=== PATIENT | male | born 1990 | race African-American/Black ===

== ENCOUNTER 2020-09-15 07:56 | Emergency (ER) | payer OTHER ==
[2020-09-15] MEDS ORDERED: CEPHALEXIN500 M1 PO (08:59)
== END 2020-09-15 09:10 | disposition home or self-care (01) ==
LOC: FER 07:56
DX: S51.812A Laceration without foreign body of left forearm, initial encounter (principal); F17.210 Nicotine dependence, cigarettes, uncomplicated; W27.0XXA Contact with workbench tool, initial encounter; Y92.009 Unspecified place in unspecified non-institutional (private) residence as the place of occurrence of the external cause